=== PATIENT | male | born 1995 | race Caucasian/White ===

== ENCOUNTER 2018-12-27 16:05 | Emergency (ER) | payer OTHER ==
[2018-12-27 16:37] VITALS: BP 105/76
--- NOTE | 2018-12-27 16:55 | UC ---
Complaint Male HPI - HPI Summary HPI Summary: 23-year-old male comes in with chief complaint of some sores on his penis. In October of this year he noticed some red irritated areas on the shaft just adjacent to the glans. There are erythematous and itchy. They improved on her own and went away. About a week ago he noticed some again. Is to maintain areas in the location described above. He reports that things have improved in the last week and a longer erythematous. He believes to get worse after intercourse. No dysuria no burning with urination no blood seen in the urine no abdominal pain no flank pain no other sores feels well otherwise. - History of Current Complaint Chief Complaint: UCGeneralIllness Stated Complaint: PERSONAL Time Seen by Provider: 12/27/18 16:23 Pain Intensity: 0 - Allergies/Home Medications Allergies/Adverse Reactions: Allergies Allergy/AdvReac Type Severity Reaction Status Date / Time No Known Allergies Allergy Verified 12/27/18 16:32 Home Medications: Home Medications NK [No Home Medications Reported] 12/27/18 [History Confirmed 12/27/18] PMH/Surg Hx/FS Hx/Imm Hx Previously Healthy: Yes - Surgical History Surgical History: Yes Surgery Procedure, Year, and Place: neck surgery - Family History Known Family History: Positive: Non-Contributory - Social History Alcohol Use: Occasionally Substance Use Type: Marijuana Substance Use Comment - Amount & Last Used: daily Smoking Status (MU): Never Smoked Tobacco Review of Systems All Other Systems Reviewed And Are Negative: Yes Constitutional: Positive: Negative Skin: Positive: Other - SEE HPI Eyes: Positive: Negative ENT: Positive: Negative Respiratory: Positive: Negative Cardiovascular: Positive: Negative Gastrointestinal: Positive: Negative Genitourinary: Positive: Negative. Negative: Dysuria, Hematuria, Frequency, Urgency, Vaginal/Penile Burning, Vaginal/Penile Discharge, Vaginal/Penile Pain, Vaginal/Penile Tenderness, Ulceration/Lesion Motor: Positive: Negative Neurovascular: Positive: Negative Musculoskeletal: Positive: Negative Neurological: Positive: Negative Psychological: Positive: Negative Is Patient Immunocompromised?: No Physical Exam Triage Information Reviewed: Yes Appearance: Well-Appearing, No Pain Distress, Well-Nourished Vital Signs: Initial Vital Signs Temp 97.8 F 12/27/18 16:32 Pulse 71 12/27/18 16:32 Resp 15 12/27/18 16:32 BP 105/76 12/27/18 16:32 Pulse Ox 100 12/27/18 16:32 Vital Signs Reviewed: Yes Eye Exam: Normal Eyes: Positive: Conjunctiva Clear Neck: Positive: Supple Respiratory: Positive: No respiratory distress Cardiovascular: Positive: RRR Male Genital Exam: Negative: Urethral Discharge Musculoskeletal: Positive: Strength Intact, ROM Intact Neurological: Positive: Alert Psychological: Positive: Age Appropriate Behavior Skin: Positive: Other - On the dorsal shaft of distal penis just adjacent to the glans patient pointed out to 2 mm flesh-colored areas that are soft without erythema. I do not appreciated any verrucous nature. Complaint Male Course/Dx - Course Course Of Treatment: Most probable cause of the rashes intermittent Eugenia infection. The reasons the patient's concerned about do not have a verrucous nature at this time of genital warts. There is no central dimpling of molluscum contagiosum. Is not ulceration. Plan at this time is to treat for yeast infection and continue observation so that if the areas do become more irritated of the growth size can have a better idea of what they are and future treatment. Let him know to follow-up with the [facility] service or can return here if is any changes or any concerns. I discussed the urinalysis results to include the trace blood and leukocytes. Urine cultures pending GC chlamydia are pending. I recommended reevaluation at [facility] services to recheck for hematuria and further evaluation and care as needed. - Differential Dx/Diagnosis Provider Diagnosis: Balanitis, Hematuria Discharge ED - Sign-Out/Discharge Documenting (check all that apply): Patient Departure All imaging exams completed and their final reports reviewed: No Studies - Discharge Plan Condition: Stable Disposition: HOME Patient Education Materials: Balanitis (ED) Referrals: [facility] [Outside] Additional Instructions: FOLLOW UP WITH [facility] TO RECHECK FOR BLOOD IN YOUR URINE. USE OVER THE COUNTER CLOTRIMAZOLE (LOTRIMIN) NEEDED. GET RECHECKED SOONER IF WORSE OR ANY QUESTIONS OR CONCERNS. - Billing Disposition and Condition Condition: STABLE Disposition: Home
[2018-12-30 13:24] LABS: Chlamydia trachomatis NAA Negative (Negative); Neisseria gonorrhoeae (GC) NAA Negative (Negative)
== END 2018-12-27 17:07 | disposition home or self-care (01) ==
LOC: UCCORT 16:05
DX: N48.1 Balanitis (principal); R31.9 Hematuria, unspecified
CPT/HCPCS: 81003; 87086; 87491; 87591; 99201; G0463